=== PATIENT | female | born 1940 | race Caucasian/White ===

== ENCOUNTER 2020-05-01 07:17 | Outpatient (CLI) | payer MEDICARE ==
[2020-05-01 17:58] LABS: #Basophils 0.2 10x3/uL (0.0-0.2); #Eosinphils 0.2 10x3/uL (0.0-0.5); #Monocytes 1.1 10x3/uL (0.0-1.1); %Basophils 1.8 % (0.0-2.0); %Eosinophils 1.6 % (0.0-6.0); %Lymphocytes 30.5 % (18.0-47.0); %Monocytes 10.2 % (0.0-10.0); %Neutrophils 54.9 % (40.0-75.0); Hemoglobin 14.1 g/dL (12.0-16.0); Mean Corpuscular HGB CONC 33.8 G/DL (32.0-36.0); Mean Corpuscular Hemoglobin 30.7 PG (27.0-33.0); Mean Corpuscular Volume 90.8 fl (80.0-100.0); Mean Platelet Volume 11.9 fl (7.4-10.4); Platelet Count 177 10x3/uL (130-400); RBC Distribution Width 14.4 % (11.5-14.5); Red Blood Cell (RBC) Count 4.59 10x6/uL (3.90-5.20); White Blood Cell (WBC) Count 10.9 10x3/uL (4.5-11.0)
[2020-05-02 14:44] LABS: SARS-CoV-2 MS2 Positive; SARS-CoV-2 N Gene Negative; SARS-CoV-2 S Gene Negative; SARS-CoV-2 by NAA Not Detected (NotDetected); SARS-CoV-2 orf1ab Negative
--- NOTE | 2020-05-06 06:55 | EKG ---
Test Reason : PREOP Blood Pressure : / mmHG Vent. Rate : 087 BPM Atrial Rate : 087 BPM P-R Int : 158 ms QRS Dur : 086 ms QT Int : 384 ms P-R-T Axes : 070 030 065 degrees QTc Int : 462 ms Normal sinus rhythm Cannot rule out Anterior infarct , age undetermined Abnormal ECG No previous ECGs available Confirmed by JALEN JULIEN MD ([id number]) on 05/06/2020 6:55:16 AM Referred By: Luis ROSADO Confirmed By:JALEN JULIEN MD
== END 2020-05-01 07:18 | disposition home or self-care (01) ==
LOC: LABBT 07:17
PROVIDERS: ATTEND Orthopaedic Surgery
DX: Z01.818 Encounter for other preprocedural examination (principal); Z01.812 Encounter for preprocedural laboratory examination; Z20.828 Contact with and (suspected) exposure to other viral communicable diseases; G56.03 Carpal tunnel syndrome, bilateral upper limbs
CPT/HCPCS: 85025; 93005; U0003; 87635; 93010

== ENCOUNTER 2020-05-06 07:14 | Day surgery (SDC) | payer MEDICARE ==
[2020-05-05 11:23] VITALS: BMI 31.3
[2020-05-06] MEDS ORDERED: Lidocaine 1% w/Epinephrine 1:100K 20 ML VIAL ONE (08:51)
[2020-05-06] MEDS ORDERED: Fentanyl 100 MCG/2 ML VIAL ONE (09:06)
[2020-05-06] MEDS ORDERED: PROPOFOL 200 MG/20 ML VIAL ONE (09:41)
[2020-05-06] MEDS ORDERED: Ondansetron PF 4 MG/2 ML Vial ONE (09:41)
--- NOTE | 2020-05-07 08:53 | OP ---
DATE OF PROCEDURE: 05/06/2020 PREOPERATIVE DIAGNOSIS: Right carpal tunnel syndrome. POSTOPERATIVE DIAGNOSIS: Right carpal tunnel syndrome. PROCEDURE PERFORMED: Right carpal tunnel release, open. RECREATION ENGINEER: None. ANESTHESIOLOGIST: Shlomo Meyer MD ANESTHESIA: The patient received a LMA with 4 mL of 1% lidocaine with epinephrine. ESTIMATED BLOOD LOSS: Less than 10 mL. TOURNIQUET TIME: 2 minutes at 250 mmHg. ANTIBIOTICS: Ancef 2 g. COMPLICATIONS: None. HISTORY OF PRESENT ILLNESS: Ms. Cochran is a 79-year-old female with right carpal tunnel syndrome, having difficulty with writing her pen pals because of it. I discussed the risks and benefits of surgery, pain, scar, bleeding, infection, damage to vital structures including nerve, decreased range of motion and strength, need for further surgeries, blood clots, loss of life or limb. She understood the risks and benefits and elected to proceed. DESCRIPTION OF PROCEDURE: Time-out was performed designating the patient's right upper extremity as the operative site based on site, consent, and markings. After time-out, the patient was prepped and draped in a sterile fashion. Tourniquet was up for 2 minutes. Midline incision proximal to Hensley's cardinal line over the fourth ray down through skin, blunt dissected down to the palmar fascia. I used a hemostat to protect and come through the palmar fascia and transverse carpal ligament using sharp dissection through the palmaris brevis as well as transverse carpal ligament and completely released it with scissors proximally. We dissected and ensured that there was a complete release of the carpal tunnel. Washed. After letting down the tourniquet at 2 minutes, controlled bleeding, washed, and then closed with 4-0 nylon horizontal mattress sutures. The patient will be discharged home. Follow up with me in about 10 to 12 days for suture removal. She is to take pain medications, transition to Tylenol and ibuprofen afterwards. Job ID: [id number]
== END 2020-05-06 10:35 | disposition home or self-care (01) ==
LOC: SDC 07:14
PROVIDERS: ATTEND Orthopaedic Surgery
PROC: 01N50ZZ Release Median Nerve, Open Approach (ICD-10-PCS; principal; 2020-05-06)
DX: G56.03 Carpal tunnel syndrome, bilateral upper limbs (principal); M18.11 Unilateral primary osteoarthritis of first carpometacarpal joint, right hand; I10 Essential (primary) hypertension; Z79.899 Other long term (current) drug therapy
CPT/HCPCS: J0690; J2405; J2704; J3010

== ENCOUNTER 2022-09-10 09:31 | Outpatient (CLI) | payer MEDICARE | END 2022-09-10 09:32 | disposition home or self-care (01) | LOC: RAD-FRANK 09:31 | PROVIDERS: ATTEND Nurse Practitioner Family | DX: R10.13 Epigastric pain (principal) | CPT/HCPCS: 74018 ==